=== PATIENT | male | born 1930 | race Caucasian/White ===

== ENCOUNTER → 2017-01-30 | Outpatient (CLI) | payer MEDICARE, BC ==
[~2017-01-30] MED LIST: ASPIRIN E.C. 8181 MG PO; ASTELIN NASAL S34 ML NS; ATROVENT INHALE14 GM IH; ATROVENTNS0.03% NS; BACTRIM DS 8001 TAB PO; CALCIUM1 CAP PO; CALTRATE 600600 MG PO; CIPRO 500MG TA500 MG PO; COLON HEALTH; COREG 3.123.125 MG/T PO; EFFIENT10 MG PO; FINASTERIDE5 MG PO; FLAGYL500 MG PO; FLOMAX 0.40.4 MG/CAP PO; LIPITOR20 MG PO; LUTEIN PO; MULTIPLE VITAMI1 CAP PO; NASACORT55 MCG/ACT NS; NITRO-DUR0.4 MG/PAT TD; OMEPRAZOLE40 MG PO; PRILOSEC 20MG20 MG PO; PROBIOTIC FORMU1 CAP PO; PROSCAR 5MG5 MG PO; TYLENOL 325MG325 MG PO; TYLENOL 500MG500 MG PO
== END ==
LOC: SUN.DIA 11:04
DX: E11.40 Type 2 diabetes mellitus with diabetic neuropathy, unspecified (principal); Z71.3 Dietary counseling and surveillance; I51.9 Heart disease, unspecified; F17.290 Nicotine dependence, other tobacco product, uncomplicated

== ENCOUNTER → 2017-07-03 | Outpatient (CLI) | payer MEDICARE, BC | LOC: SUN.DIA 10:17 | DX: E11.40 Type 2 diabetes mellitus with diabetic neuropathy, unspecified (principal); I51.9 Heart disease, unspecified; Z68.25 Body mass index [BMI] 25.0-25.9, adult; Z71.3 Dietary counseling and surveillance; F17.290 Nicotine dependence, other tobacco product, uncomplicated | CPT/HCPCS: G0108 ==

== ENCOUNTER → 2017-12-26 | Outpatient (CLI) | payer MEDICARE, BC | LOC: COL.VAS 13:53 | DX: M79.605 Pain in left leg (principal); M79.89 Other specified soft tissue disorders; W19.XXXA Unspecified fall, initial encounter ==

== ENCOUNTER → 2017-12-30 | Outpatient (CLI) | payer MEDICARE, BC | LOC: SUN.DIA 07-31 13:54 | DX: E11.40 Type 2 diabetes mellitus with diabetic neuropathy, unspecified (principal); I51.9 Heart disease, unspecified; Z68.25 Body mass index [BMI] 25.0-25.9, adult; Z71.3 Dietary counseling and surveillance; Z72.0 Tobacco use | CPT/HCPCS: G0108 ==

== ENCOUNTER → 2018-05-05 | Outpatient (CLI) | payer MEDICARE, BC | LOC: SUN.DIA 09:44 | DX: E11.40 Type 2 diabetes mellitus with diabetic neuropathy, unspecified (principal); I51.9 Heart disease, unspecified; Z68.24 Body mass index [BMI] 24.0-24.9, adult; Z71.3 Dietary counseling and surveillance; Z72.0 Tobacco use | CPT/HCPCS: G0108 ==

== ENCOUNTER 2018-07-12 10:02 | Emergency (ER) | payer MEDICARE, BC ==
[~2018-07-12] VITALS: Ht 177.8 cm; Wt 74.5 kg
[2018-07-12 10:08] VITALS: TEMP 97.7
[2018-07-12 11:18] VITALS: BP 138/79; PULSE 55
== END 2018-07-12 11:31 | disposition home or self-care (01) ==
LOC: COL.ER 10:02
DX: S61.411A Laceration without foreign body of right hand, initial encounter (principal); Z98.890 Other specified postprocedural states; Z79.82 Long term (current) use of aspirin; Z87.891 Personal history of nicotine dependence; W26.8XXA Contact with other sharp object(s), not elsewhere classified, initial encounter; Y92.002 Bathroom of unspecified non-institutional (private) residence as the place of occurrence of the external cause

== ENCOUNTER → 2018-09-07 | Outpatient (CLI) | payer MEDICARE, BC | LOC: SUN.DIA 13:48 | DX: E11.40 Type 2 diabetes mellitus with diabetic neuropathy, unspecified (principal); F17.210 Nicotine dependence, cigarettes, uncomplicated | CPT/HCPCS: G0108 ==

== ENCOUNTER 2019-02-24 11:07 | Emergency (ER) | payer MEDICARE, BC ==
[~2019-02-24] VITALS: Ht 177.8 cm; Wt 73.6 kg
[2019-02-24 11:13] VITALS: TEMP 98.8
[2019-02-24 12:27] LABS: BASO % 0.6 % (0.0-2.0); EOS # 0.1 (0.0-0.7); EOS % 1.1 % (0-4.0); GRAN # 4.2 (1.4-6.5); GRAN % 66.6 % (42.2-75.2); HEMATOCRIT 36.7 % (42.0-52.0); HEMOGLOBIN 11.5 g/dl (13.5-18.0); LYMPH # 1.2 (1.2-3.4); LYMPH % 18.4 % (20.0-51.0); MEAN CELL VOLUME 95 fl (80.0-100.0); MEAN CORPUSCULAR HEMOGLOBIN 30 pg (27.0-31.0); MEAN CORPUSCULAR HGB CONC 31 g/dl (33.0-37.0); MEAN PLATELET VOLUME 10.7 fl (7.4-10.4); MONO # 0.8 (0.1-0.6); PLATELET COUNT 184 K/mm3 (130-400); RED BLOOD COUNT 3.88 M/mm3 (4.20-5.60); REDCELL DISTRIBUTION WIDTH-CV 14.1 % (11.5-14.5)
[2019-02-24 12:39] LABS: ALBUMIN 3.3 gm/dL (3.5-5.0); BILIRUBIN,TOTAL 0.5 mg/dL (0.0-1.0); CALCIUM 8.5 mg/dL (8.4-10.2); CREATININE, serum 0.77 (0.66-1.25); POTASSIUM 4.6 mmol/L (3.4-5.0); TOTAL PROTEIN 6.3 gm/dL (6.4-8.2)
[2019-02-24 13:13] VITALS: BP 138/74; PULSE 60
== END 2019-02-24 13:13 | disposition home or self-care (01) ==
LOC: COL.ER 11:07
PROVIDERS: Family Medicine
DX: S00.93XA Contusion of unspecified part of head, initial encounter (principal); S70.02XA Contusion of left hip, initial encounter; S90.02XA Contusion of left ankle, initial encounter; R40.2412 Glasgow coma scale score 13-15, at arrival to emergency department; I25.10 Atherosclerotic heart disease of native coronary artery without angina pectoris; W01.198A Fall on same level from slipping, tripping and stumbling with subsequent striking against other object, initial encounter

== ENCOUNTER → 2019-03-17 | Outpatient (CLI) | payer MEDICARE, BC | LOC: MHCPAIN 14:08 | DX: G89.29 Other chronic pain (principal); M47.817 Spondylosis without myelopathy or radiculopathy, lumbosacral region; M54.16 Radiculopathy, lumbar region; M53.3 Sacrococcygeal disorders, not elsewhere classified; M48.061 Spinal stenosis, lumbar region without neurogenic claudication | CPT/HCPCS: G0463 ==

== ENCOUNTER 2020-02-21 11:00 | Emergency (ER) | payer MEDICARE, BC ==
[~2020-02-21] VITALS: Ht 177.8 cm; Wt 75.0 kg
[2020-02-21 11:45] LABS: BASO % 0.5 % (0.0-2.0); EOS # 0.4 (0.0-0.7); EOS % 4.7 % (0-4.0); GRAN # 5.9 (1.4-6.5); GRAN % 68.4 % (42.2-75.2); HEMOGLOBIN 11.3 g/dl (13.5-18.0); LYMPH # 1.3 (1.2-3.4); LYMPH % 15.4 % (20.0-51.0); MEAN CELL VOLUME 94 fl (80.0-100.0); MEAN CORPUSCULAR HEMOGLOBIN 30 pg (27.0-31.0); MEAN CORPUSCULAR HGB CONC 32 g/dl (33.0-37.0); MEAN PLATELET VOLUME 10.4 fl (7.4-10.4); MONO # 0.9 (0.1-0.6); MONO % 10.5 % (1.7-9.3); PLATELET COUNT 161 K/mm3 (130-400); REDCELL DISTRIBUTION WIDTH-CV 14.8 % (11.5-14.5)
[2020-02-21] MEDS ORDERED: BENTYL 20MG20 MG/TAB PO (11:46)
[2020-02-21] MEDS ORDERED: NEXIUM 20MG20 MG PO (11:46)
[2020-02-21] MEDS ORDERED: PROSCAR 5MG5 MG (11:48)
[2020-02-21 11:49] LABS: HEMATOCRIT 35.6 % (42.0-52.0)
[2020-02-21] MEDS ORDERED: LEADER CLE17 GM/Dose PO (11:49)
[2020-02-21] MEDS ORDERED: SENNA8.8 MG/5 M PO (11:50)
[2020-02-21] MEDS ORDERED: BENTYL 10MG10 MG/CAP PO (11:50)
[2020-02-21 11:53] LABS: INR 1.6 (0.8-3.0); PROTHROMBIN TIME 18.5 SECONDS (9.7-12.8)
[2020-02-21 11:58] LABS: ALBUMIN 3.4 gm/dL (3.5-5.0); BILIRUBIN,TOTAL 1.4 mg/dL (0.0-1.0); CALCIUM 8.3 mg/dL (8.4-10.2); CREATININE, serum 0.73 (0.66-1.25); POTASSIUM 4.3 mmol/L (3.4-5.0); TOTAL PROTEIN 6.4 gm/dL (6.4-8.2)
[2020-02-21 12:09] LABS: TROPONIN-I 0.017 ng/mL (0.000-0.035)
[2020-02-21 12:11] LABS: COLLECTION METHOD CLEAN CATCH
[2020-02-21 12:21] LABS: MUCOUS Present /lpf; PH 6 (5-8); SQUAMOUS EPITHELIAL 0-2 /hpf; URINE APPEARANCE Clear; URINE BACTERIA Rare /hpf; URINE BILIRUBIN Negative (NEGATIVE); URINE BLOOD 1+ (NEGATIVE); URINE COLOR Yellow; URINE GLUCOSE Negative (NEGATIVE); URINE KETONE Negative (NEGATIVE); URINE LEUKOCYTE ESTERASE Negative (NEGATIVE); URINE NITRATE Negative (NEGATIVE); URINE PROTEIN(semi-quant) Negative (NEGATIVE); URINE UROBILINOGEN >=4.0 mg/dL (NEGATIVE)
[2020-02-21 13:51] VITALS: BP 141/71; PULSE 81; TEMP 98.7
== END 2020-02-21 14:09 | disposition home or self-care (01) ==
LOC: COL.ER 11:00
PROVIDERS: Nurse Practitioner
DX: S83.91XA Sprain of unspecified site of right knee, initial encounter (principal); R40.2410 Glasgow coma scale score 13-15, unspecified time; Z85.51 Personal history of malignant neoplasm of bladder; W19.XXXA Unspecified fall, initial encounter; Y92.009 Unspecified place in unspecified non-institutional (private) residence as the place of occurrence of the external cause